=== PATIENT | female | born 1950 | race Caucasian/White ===

== ENCOUNTER 2019-10-17 11:38 | Emergency (ER) | payer OTHER ==
[~2019-10-17] VITALS: Ht 172.7 cm; Wt 68.0 kg
[~2019-10-17 11:38] MED LIST: CLARITIN10 M2 PO; DOXYCYCLINE 10100 MG PO; TAMIFLU PO; TESSALON PERLE100 MG PO
[2019-10-17 12:14] LABS: ABSOLUTE NEUTROPHILS 6.6 thou/uL (1.4-8.2); BASOPHILS 0.5 % (0.0-2.0); EOSINOPHILS 0.9 % (0.0-3.0); HEMATOCRIT 43.4 % (37.0-47.0); HEMOGLOBIN 14.5 gm/dL (12.0-15.0); LYMPHOCYTES 16.3 % (24.0-44.0); MCH 30.6 pg (26.0-34.0); MCHC 33.3 g/dL (28.0-37.0); MCV 91.7 fL (80.0-100.0); MONOCYTES 3.9 % (1.0-8.0); PLATELET COUNT 326 thou/uL (150-400); POLYS 78.4 % (36.0-66.0); RBC 4.74 mil/uL (4.20-5.00); RDW 13.6 % (10.5-14.5); WBC 8.4 thou/uL (4.0-11.0)
[2019-10-17 12:16] LABS: ANION GAP 11 mmol/L (7-16); BUN 9 mg/dL (7-18); CALCIUM 10.2 mg/dL (8.5-10.1); CHLORIDE 103 mmol/L (98-107); CO2 27 mmol/L (21-32); CREATININE 0.9 mg/dL (0.6-1.0); GLUCOSE 105 mg/dL (74-106); POTASSIUM 3.8 mmol/L (3.5-5.1); SODIUM 141 mmol/L (136-145)
[2019-10-17 12:26] LABS: ALBUMIN 4.2 g/dL (3.4-5.0); SGOT 20 U/L (15-37); SGPT 24 U/L (30-65); TOTAL BILIRUBIN 0.5 mg/dL (<0.1-1.0); TOTAL PROTEIN 8.1 g/dL (6.4-8.2); TROPONIN-I <0.06 ng/mL (<0.06)
[2019-10-17 13:55] LABS: URINE BILIRUBIN NEGATIVE (Negative); URINE BLOOD NEGATIVE (Negative); URINE CLARITY CLEAR; URINE COLOR YELLOW; URINE GLUCOSE-RANDOM* NEGATIVE (Negative); URINE KETONES TRACE (Negative); URINE LEUKOCYTES-REFLEX NEGATIVE (Negative); URINE NITRITE-REFLEX NEGATIVE (Negative); URINE PROTEIN (DIPSTICK) NEGATIVE (Negative); URINE SPECIFIC GRAVITY <= 1.005 (1.005-1.035); URINE UROBILINOGEN 0.2 E.U./dl (0.2-1.0)
[2019-10-17] MEDS ORDERED: NAPROXEN SODIU220 M2 PO (17:04)
[2019-10-17 17:40] VITALS: BP 116/60
--- NOTE | 2019-10-18 08:24 | EKG ---
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: [facility] : 1950 Requested By: Graciela Mcdonald Order Number: [id number] MD: Isacc Costa Measurements Intervals [place] Rate: 81 P: 84 SD: 156 QRS: -57 QRSD: 97 T: 61 QT: 386 QTc: 448 Interpretive Statements Sinus rhythm Left anterior fascicular block RSR' in V1 or V2, probably normal variant Compared to ECG 05/26/2012 07:17:25 Electronically Signed On 10-18-2019 8:24:16 HOT STRIP MILL INSPECTOR by Isacc Costa [email or web address] <ELECTRONICALLY SIGNED> By: Isacc Costa MD 10/18/19 0824 1142 1142 Isacc Costa MD /EPI
== END 2019-10-17 17:42 | disposition home or self-care (01) ==
LOC: ER 11:38
PROVIDERS: Emergency Medicine Emergency Medical Services
DX: M25.512 Pain in left shoulder (principal); R07.9 Chest pain, unspecified; Z88.0 Allergy status to penicillin; Z88.2 Allergy status to sulfonamides; Z88.6 Allergy status to analgesic agent; Z88.8 Allergy status to other drugs, medicaments and biological substances

== ENCOUNTER 2019-10-19 00:13 | Emergency (ER) | payer OTHER ==
[~2019-10-19] VITALS: Ht 172.7 cm; Wt 68.0 kg
[~2019-10-19 00:13] MED LIST changes: +NAPROXEN SODIU220 M2 PO
[2019-10-19 00:48] LABS: BASOPHILS 0.5 % (0.0-2.0); EOSINOPHILS 3.2 % (0.0-3.0); HEMATOCRIT 40.7 % (37.0-47.0); HEMOGLOBIN 13.6 gm/dL (12.0-15.0); LYMPHOCYTES 37.6 % (24.0-44.0); MCH 30.4 pg (26.0-34.0); MCHC 33.3 g/dL (28.0-37.0); MCV 91.3 fL (80.0-100.0); MONOCYTES 5.7 % (1.0-8.0); PLATELET COUNT 304 thou/uL (150-400); RBC 4.46 mil/uL (4.20-5.00); RDW 13.7 % (10.5-14.5); WBC 7.6 thou/uL (4.0-11.0)
[2019-10-19 01:06] LABS: ANION GAP 13 mmol/L (7-16); BUN 9 mg/dL (7-18); CHLORIDE 103 mmol/L (98-107); CO2 25 mmol/L (21-32); CREATININE 0.9 mg/dL (0.6-1.0); GLUCOSE 101 mg/dL (74-106); LIPASE 294 U/L (73-393); POTASSIUM 3.5 mmol/L (3.5-5.1); SODIUM 141 mmol/L (136-145); TROPONIN-I <0.06 ng/mL (<0.06)
[2019-10-19 01:36] LABS: CALCIUM 9.9 mg/dL (8.5-10.1)
[2019-10-19 04:02] VITALS: BP 109/54
--- NOTE | 2019-10-19 08:00 | EKG ---
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 KAY : 1950 Requested By: Lincoln Ulrich Order Number: [id number] MD: Jann Turner Measurements Intervals [place] Rate: 71 P: 16 SD: 150 QRS: -42 QRSD: 98 T: 42 QT: 400 QTc: 435 Interpretive Statements Sinus rhythm Left axis deviation RSR' in V1 or V2, right VCD Compared to ECG 10/17/2019 11:42:21 No significant change was found Electronically Signed On 10-19-2019 8:00:25 HOUSE MANAGER by Jann Turner [email or web address] <ELECTRONICALLY SIGNED> By: Jann Turner MD, [facility] 10/19/19 0800 Jann Turner MD, FAC /EPI
== END 2019-10-19 04:03 | disposition home or self-care (01) ==
LOC: ER 00:13
PROVIDERS: Emergency Medicine
DX: R07.89 Other chest pain (principal); Z88.5 Allergy status to narcotic agent; Z88.0 Allergy status to penicillin; Z79.899 Other long term (current) drug therapy; Z88.2 Allergy status to sulfonamides

== ENCOUNTER 2021-06-14 06:59 | Emergency (ER) | payer OTHER ==
[~2021-06-14] VITALS: Ht 172.7 cm; Wt 70.3 kg
[2021-06-14 07:15] LABS: URINE BILIRUBIN NEGATIVE (Negative); URINE BLOOD 1+ (Negative); URINE CLARITY CLEAR; URINE COLOR YELLOW; URINE GLUCOSE-RANDOM* NEGATIVE (Negative); URINE KETONES 1+ (Negative); URINE LEUKOCYTES-REFLEX TRACE (Negative); URINE NITRITE-REFLEX NEGATIVE (Negative); URINE PROTEIN (DIPSTICK) NEGATIVE (Negative); URINE SPECIFIC GRAVITY 1.015 (1.005-1.035); URINE UROBILINOGEN 0.2 E.U./dl (0.2-1.0)
[2021-06-14 07:25] LABS: SQUAMOUS 0-3 Few /LPF (0-3)
[2021-06-14 07:26] LABS: BACTERIA-REFLEX 1-9 Few /HPF (None Seen); CASTS None Seen /LPF (None Seen); CRYSTALS None Seen /LPF (None Seen); URINE RBC None Seen /HPF (NONE SEEN); URINE WBC-REFLEX 0-5 Rare /HPF (0-5)
[2021-06-14 07:44] LABS: ABSOLUTE NEUTROPHILS 3.2 thou/uL (1.4-8.2); BASOPHILS 0.5 % (0.0-2.0); EOSINOPHILS 3.3 % (0.0-3.0); HEMATOCRIT 39.6 % (37.0-47.0); HEMOGLOBIN 13.3 gm/dL (12.0-15.0); LYMPHOCYTES 28.8 % (24.0-44.0); MCH 30.6 pg (26.0-34.0); MCHC 33.7 g/dL (28.0-37.0); MCV 90.7 fL (80.0-100.0); PLATELET COUNT 258 thou/uL (150-400); POLYS 59.4 % (36.0-66.0); RBC 4.37 mil/uL (4.20-5.00); RDW 13.7 % (10.5-14.5); WBC 5.5 thou/uL (4.0-11.0)
[2021-06-14 07:50] LABS: CALCIUM 9.2 mg/dL (8.5-10.1); CREATININE 0.9 mg/dL (0.6-1.0); POTASSIUM 3.7 mmol/L (3.5-5.1)
[2021-06-14 07:56] LABS: ALBUMIN 3.8 g/dL (3.4-5.0); TOTAL BILIRUBIN 0.5 mg/dL (0.2-1.0)
[2021-06-14 07:57] LABS: LIPASE 209 U/L (73-393); TROPONIN-I <0.06 ng/mL (<0.06)
[2021-06-14] MEDS ORDERED: CEPHALEXIN500 MG PO (09:56)
[2021-06-14 10:21] VITALS: BP 134/66
== END 2021-06-14 10:21 | disposition home or self-care (01) ==
LOC: ER 06:59
PROVIDERS: Emergency Medicine
DX: N39.0 Urinary tract infection, site not specified (principal); Z20.822 Contact with and (suspected) exposure to COVID-19; R10.31 Right lower quadrant pain; K59.00 Constipation, unspecified; Z88.0 Allergy status to penicillin; Z88.2 Allergy status to sulfonamides; Z88.6 Allergy status to analgesic agent; Z91.041 Radiographic dye allergy status

== ENCOUNTER 2021-06-25 06:28 | Emergency (ER) | payer OTHER ==
[~2021-06-25] VITALS: Ht 172.7 cm; Wt 68.0 kg
--- NOTE | ~2021-06-25 | EMS ---
[facility] [address] [place] [address] EMS Patient Care Report Name: LYNDON VALDIVIA Room #: DEP LISA Phillips#: [id number] Admission: 06/25/21 Attend Phys: Discharge: 06/25/21 Date of : 48 Report #: [id number] THIS REPORT FOR: //name// Report Transmitted: 06/30/2021 11:07 EMS Care Summary [place], [place]/[facility] Incident [id number] @ 06/25/2021 05:55 Incident Location [address] [place] [address] Patient TYRONE VALDIVIA Female, 71 Years 1950 Patient Address [address] [place] [address] Patient History Shingles, Chief Complaint Syncope Disposition Transported No Lights/[employer] Dispatch Reason Unconscious/Fainting Transported To [facility] Narrative M42 arrived on scene to find the patient lying supine on the ground. Patient said she had walked into the kitchen and had passed out. Patient's daughter had come in to find the patient leaning against the right side of the cabinet. Patient's daughter said the patient had been passed out from anywhere from 10-30 seconds. Patient denied any head neck or back pain. Patient said she just feels very weak. Patient said she had shingles for the past 2 weeks on the right side of her body. Patient denied chest pain, fever, cough, covid-19, or shortness of breath. Patient was moved to the cot using a krista gizzard skin remover. seat [facility] [address] [place] [address] EMS Patient Care Report Name: LYNDON VALDIVIA Room #: DEP Alan#: [id number] Admission: 06/25/21 Attend Phys: Discharge: 06/25/21 Date of : 48 Report #: [id number] belts were used with the patient. En route to the hospital no changes in the patient condition occurred. M42 arrived on scene of the hospital and patient care was transferred to the RN. Initial Vitals @06:03P: 87,R: 16,BP: 107/56,Pain: 0/10,GCS: 15,Glucose: 131,SpO2: 98,Revised Trauma: 12, @06:36P: 78,R: 16,BP: 109/62,Pain: 0/10,GCS: 15,SpO2: 97,Revised Trauma: 12, Assessments @06:00MENTAL:No Abnormalities,SKIN:No Abnormalities,HEENT:Head/Face: No Abnormalities,Eyes: No Abnormalities,Neck/Airway: No Abnormalities,LUNG SOUNDS:General: No Abnormalities,Left Upper: No Abnormalities,Right Upper: No Abnormalities,Left Lower: No Abnormalities,Right Lower: No Abnormalities,ABDOMEN:General: No Abnormalities,Left Upper: No Abnormalities,Right Upper: No Abnormalities,Left Lower: No Abnormalities,Right Lower: No Abnormalities,PELVIS//GI:No Abnormalities,EXTREMITIES:Left Arm: No Abnormalities,Right Arm: No Abnormalities,Left Leg: No Abnormalities,Right Leg: No Abnormalities,PULSE:NEURO:No Abnormalities,@06:14MENTAL:No Abnormalities,SKIN:No Abnormalities,HEENT:Head/Face: No Abnormalities,Eyes: No Abnormalities,Neck/Airway: No Abnormalities,LUNG SOUNDS:General: No Abnormalities,Left Upper: No Abnormalities,Right Upper: No Abnormalities,Left Lower: No Abnormalities,Right Lower: No Abnormalities,ABDOMEN:General: No Abnormalities,Left Upper: No Abnormalities,Right Upper: No Abnormalities,Left Lower: No Abnormalities,Right Lower: No Abnormalities,PELVIS//GI:No Abnormalities,EXTREMITIES:Left Arm: No Abnormalities,Right Arm: No Abnormalities,Left Leg: No Abnormalities,Right Leg: No Abnormalities,PULSE:NEURO:No Abnormalities, Impression Syncope / Fainting Procedures @06:00ALS AssessmentResponse: UnchangedSucceeded@06:08Saline Lock 10cc (20 ga) Site: Antecubital-LeftResponse: UnchangedSucceeded Timeline 05:53,Call Received 05:53,Dispatch Notified 05:55,Dispatched 05:56,En Route 05:59,On Scene 06:00,At Patient 06:00,ALS Assessment,Response: UnchangedSucceeded, 06:03,BP: 107/56 M,PULSE: 87,RR: 16 R,SPO2: 98 Ox,ETCO2: ,B,PAIN: 0,GCS: 15, [facility] [address] [place] [address] EMS Patient Care Report Name: LYNDON VALDIVIA Room #: DEP LISA Phillips#: [id number] Admission: 06/25/21 Attend Phys: Discharge: 06/25/21 Date of : 48 Report #: [id number] 06:08,Saline Lock 10cc 20 ga Site: Antecubital-Left,Response: UnchangedSucceeded, 06:12,Depart Scene 06:35,At Destination 06:36,BP: 109/62 M,PULSE: 78,RR: 16 R,SPO2: 97 Ox,ETCO2: ,BG: ,PAIN: 0,GCS: 15, 06:47,Call Closed Disclaimer v1.1 Copyright 2020 [email or web address] This EMS Care Summary contains data elements from the applicable legal record (which may be displayed differently). It is designed to provide pertinent information for the following purposes: continuity of care, clinical quality, and state data reporting. The complete legal record is available to ED staff and administrators of the receiving hospital in [employer]'s Patient Tracker. All data is provided "as is."
[~2021-06-25 06:28] MED LIST changes: +CEPHALEXIN500 MG PO
--- NOTE | 2021-06-25 07:19 | EKG ---
[place] [address] [facility] [place] [address] ELECTROCARDIOGRAM REPORT Name: LYNDON VALDIVIA Room #: REG [facility]#: [id number] Admission: 06/25/21 Attend Phys: Discharge: Date of : 48 Report #: [id number] 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: TRISTEN : 1950 Requested By: Servando Sosa Order Number: [id number] MD: Wally Washington Measurements Intervals [place] Rate: 71 P: 71 IA: 159 QRS: -59 QRSD: 97 T: 54 QT: 432 QTc: 470 Interpretive Statements Sinus rhythm Left anterior fascicular block RSR' in V1 or V2, right VCD or RVH Compared to ECG 10/19/2019 00:47:06 Left anterior fascicular block now present Right ventricular hypertrophy now present Left-axis deviation no longer present Electronically Signed On 06-25-2021 7:18:53 CDT by Wally Washington [email or web address] <ELECTRONICALLY SIGNED> By: Wally Washington MD, FACC 06/25/21 0718 0637 0637 Wally Washington MD, [facility] /EPI
[2021-06-25 07:28] LABS: ABSOLUTE NEUTROPHILS 5.6 thou/uL (1.4-8.2); BASOPHILS 0.6 % (0.0-2.0); EOSINOPHILS 0.5 % (0.0-3.0); HEMATOCRIT 39.9 % (37.0-47.0); HEMOGLOBIN 13.7 gm/dL (12.0-15.0); LYMPHOCYTES 31.3 % (24.0-44.0); MCH 30.6 pg (26.0-34.0); MCHC 34.2 g/dL (28.0-37.0); MCV 89.5 fL (80.0-100.0); MONOCYTES 5.6 % (1.0-8.0); PLATELET COUNT 321 thou/uL (150-400); RBC 4.46 mil/uL (4.20-5.00); RDW 13.4 % (10.5-14.5)
[2021-06-25 07:38] LABS: ANION GAP 14 mmol/L (7-16); BUN 5 mg/dL (7-18); CALCIUM 9.1 mg/dL (8.5-10.1); CHLORIDE 93 mmol/L (98-107); CO2 22 mmol/L (21-32); CREATININE 0.7 mg/dL (0.6-1.0); GLUCOSE 157 mg/dL (74-106); POTASSIUM 3.5 mmol/L (3.5-5.1); SODIUM 129 mmol/L (136-145)
[2021-06-25 07:49] LABS: ALBUMIN 3.8 g/dL (3.4-5.0); LIPASE 188 U/L (73-393); SGOT 16 U/L (15-37); SGPT 16 U/L (30-65); TOTAL BILIRUBIN 0.7 mg/dL (0.2-1.0); TOTAL PROTEIN 6.9 g/dL (6.4-8.2); TROPONIN-I <0.06 ng/mL (<0.06)
[2021-06-25 09:24] LABS: URINE BILIRUBIN NEGATIVE (Negative); URINE BLOOD TRACE (Negative); URINE CLARITY CLEAR; URINE COLOR YELLOW; URINE GLUCOSE-RANDOM* NEGATIVE (Negative); URINE KETONES 2+ (Negative); URINE LEUKOCYTES-REFLEX NEGATIVE (Negative); URINE NITRITE-REFLEX NEGATIVE (Negative); URINE PROTEIN (DIPSTICK) NEGATIVE (Negative); URINE UROBILINOGEN 0.2 E.U./dl (0.2-1.0)
[2021-06-25 11:58] VITALS: BP 126/76
== END 2021-06-25 11:59 | disposition home or self-care (01) ==
LOC: ER 06:28
PROVIDERS: Student in an Organized Health Care Education/Training Program
DX: R55 Syncope and collapse (principal); E87.1 Hypo-osmolality and hyponatremia; E86.0 Dehydration; Z79.899 Other long term (current) drug therapy; Z88.6 Allergy status to analgesic agent; Z88.5 Allergy status to narcotic agent; Z88.0 Allergy status to penicillin; Z88.2 Allergy status to sulfonamides

== ENCOUNTER 2021-06-29 10:21 | Emergency (ER) | payer OTHER ==
[~2021-06-29] VITALS: Ht 175.3 cm; Wt 68.0 kg
--- NOTE | ~2021-06-29 | EMS ---
[address] [address] EMS Patient Care Report Name: LYNDON VALDIVIA Room #: REG Alan#: [id number] Admission: 06/29/21 Attend Phys: Discharge: Date of : 48 Report #: [id number] THIS REPORT FOR: //name// Report Transmitted: 06/29/2021 11:59 EMS Care Summary [place], [place]/[facility] Incident [id number] @ 06/29/2021 09:40 Incident Location [address] [place], [place] [id number] Patient LYNDON VALDIVIA Female, 71 Years 1950 Patient Address [address] [place], [place] [id number] Patient History Shingles, Patient Allergies Penicillin allergy,Morphine,Sulfa, Patient Medications Ibuprofen, Chief Complaint weakness Disposition Transported No Lights/[place] Dispatch Reason Unconscious/Fainting Transported To [facility] Narrative arrived on scene PT supine and A&O X 3 on living room floor. PT stated she laid down and did not fall. Compliant of weakness and stomach pain for past 4 days which she was transported and seen for as well. Vitals were taken in supine position and PT was lifted from the floor assisted to cot where she was secured [address] [address] EMS Patient Care Report Name: LYNDON VALDIVIA Room #: REG LISA Phillips#: [id number] Admission: 06/29/21 Attend Phys: Discharge: Date of : 48 Report #: [id number] and moved to the ambulance where secondary assessment/vitals were taken. Crew transported PT non emergency to [facility] and transferred care to facility. Initial Vitals @09:46P: 109,R: 20,BP: 110/56,CO: 2,SpO2: 99, @09:54P: 95,R: 20,BP: 112/73,Pain: 0/10,GCS: 15,Glucose: 102,SpO2: 99,Revised Trauma: 12, Assessments @09:44MENTAL:No Abnormalities,SKIN:No Abnormalities,HEENT:Head/Face: No Abnormalities,Eyes: No Abnormalities,Neck/Airway: No Abnormalities,LUNG SOUNDS:General: No Abnormalities,Left Upper: No Abnormalities,Right Upper: No Abnormalities,Left Lower: No Abnormalities,Right Lower: No Abnormalities,ABDOMEN:General: No Abnormalities,Left Upper: No Abnormalities,Right Upper: No Abnormalities,Left Lower: No Abnormalities,Right Lower: No Abnormalities,PELVIS//GI:No Abnormalities,EXTREMITIES:Left Arm: No Abnormalities,Right Arm: No Abnormalities,Left Leg: No Abnormalities,Right Leg: No Abnormalities,PULSE:NEURO:No Abnormalities, Impression Generalized Weakness Procedures @09:44BLS AssessmentResponse: Unchanged Timeline 09:38,Call Received 09:38,Dispatch Notified 09:40,Dispatched 09:42,En Route 09:43,On Scene 09:44,At Patient 09:44,BLS Assessment,Response: Unchanged 09:46,BP: 110/56 M,PULSE: 109,RR: 20 R,SPO2: 99 Ox,ETCO2: ,BG: ,PAIN: ,GCS: , 09:54,BP: 112/73 M,PULSE: 95,RR: 20 R,SPO2: 99 Ox,ETCO2: ,B,PAIN: 0,GCS: 15, 10:03,Depart Scene 10:15,At Destination 10:57,Call Closed Disclaimer v1.1 Copyright 2020 [employer] This EMS Care Summary contains data elements from the applicable legal record (which may be displayed differently). It is designed to provide pertinent information for the following purposes: continuity of care, clinical quality, [facility] [address] [place] [address] EMS Patient Care Report Name: SHEALYNDON J Room #: REG [facility]#: [id number] Admission: 06/29/21 Attend Phys: Discharge: Date of : 48 Report #: [id number] and state data reporting. The complete legal record is available to ED staff and administrators of the receiving hospital in [employer] Patient Tracker. All data is provided "as is."
[2021-06-29 10:48] LABS: ABSOLUTE NEUTROPHILS 6.4 thou/uL (1.4-8.2); BASOPHILS 0.7 % (0.0-2.0); EOSINOPHILS 1.1 % (0.0-3.0); HEMOGLOBIN 14.1 gm/dL (12.0-15.0); LYMPHOCYTES 25.1 % (24.0-44.0); MCHC 34.3 g/dL (28.0-37.0); MCV 90.4 fL (80.0-100.0); MONOCYTES 7.3 % (1.0-8.0); PLATELET COUNT 354 thou/uL (150-400); POLYS 65.8 % (36.0-66.0); RBC 4.54 mil/uL (4.20-5.00); RDW 13.9 % (10.5-14.5); WBC 9.7 thou/uL (4.0-11.0)
[2021-06-29 10:56] LABS: CALCIUM 9.6 mg/dL (8.5-10.1); CREATININE 0.9 mg/dL (0.6-1.0); POTASSIUM 3.9 mmol/L (3.5-5.1)
[2021-06-29 11:07] LABS: ALBUMIN 3.9 g/dL (3.4-5.0); TOTAL BILIRUBIN 0.6 mg/dL (0.2-1.0); TOTAL PROTEIN 7.4 g/dL (6.4-8.2)
[2021-06-29 13:28] LABS: URINE BILIRUBIN NEGATIVE (Negative); URINE BLOOD TRACE (Negative); URINE CLARITY CLEAR; URINE COLOR YELLOW; URINE GLUCOSE-RANDOM* NEGATIVE (Negative); URINE KETONES 1+ (Negative); URINE LEUKOCYTES-REFLEX TRACE (Negative); URINE NITRITE-REFLEX NEGATIVE (Negative); URINE PROTEIN (DIPSTICK) NEGATIVE (Negative); URINE UROBILINOGEN 0.2 E.U./dl (0.2-1.0)
[2021-06-29 13:45] VITALS: BP 122/96
[2021-06-29] MEDS ORDERED: COLACE100 MG PO (13:47)
--- NOTE | 2021-06-29 15:15 | EKG ---
[place] [address] [place] [address] ELECTROCARDIOGRAM REPORT Name: LYNDON VALDIVIA Room #: [facility] [place]#: [id number] Admission: 06/29/21 Attend Phys: Discharge: 06/29/21 Date of : 48 Report #: [id number] [facility] ED Test Date: 2021-06-29 Test Time: 10:29:23 Pat Name: LYNDON VALDIVIA Department: Room: Gender: F Director Federal: saida : 1950 Requested By: Nicola Comer Order Number: [id number] MD: Wally Washington Measurements Intervals [place] Rate: 89 P: 49 GA: 153 QRS: -55 QRSD: 86 T: 51 QT: 374 QTc: 456 Interpretive Statements Sinus rhythm Left anterior fascicular block RSR' in V1 or V2, probably normal variant Compared to ECG 06/25/2021 06:37:49 Right ventricular hypertrophy no longer present Electronically Signed On 06-29-2021 15:15:40 CDT by Wally Washington [email or web address] <ELECTRONICALLY SIGNED> By: Wally Washington MD, [facility] 06/29/21 1515 1029 1029 Wally Washington MD, FAC /EPI
== END 2021-06-29 13:45 | disposition home or self-care (01) ==
LOC: ER 10:21
PROVIDERS: Emergency Medicine
DX: K59.00 Constipation, unspecified (principal); Z20.822 Contact with and (suspected) exposure to COVID-19; R53.1 Weakness; G89.29 Other chronic pain; Z88.0 Allergy status to penicillin; Z88.1 Allergy status to other antibiotic agents; Z88.6 Allergy status to analgesic agent; Z88.8 Allergy status to other drugs, medicaments and biological substances

== ENCOUNTER 2021-07-03 17:06 | Emergency (ER) | payer OTHER ==
[~2021-07-03] VITALS: Ht 172.7 cm; Wt 68.0 kg
[~2021-07-03 17:06] MED LIST changes: +COLACE100 MG PO
[2021-07-03 17:35] LABS: ABSOLUTE NEUTROPHILS 5.6 thou/uL (1.4-8.2); BASOPHILS 0.5 % (0.0-2.0); HEMATOCRIT 41.8 % (37.0-47.0); HEMOGLOBIN 13.7 gm/dL (12.0-15.0); LYMPHOCYTES 24.7 % (24.0-44.0); MCH 29.8 pg (26.0-34.0); MCHC 32.8 g/dL (28.0-37.0); MCV 90.8 fL (80.0-100.0); MONOCYTES 6.6 % (1.0-8.0); PLATELET COUNT 383 thou/uL (150-400); POLYS 67.2 % (36.0-66.0); RBC 4.61 mil/uL (4.20-5.00); RDW 13.8 % (10.5-14.5); WBC 8.3 thou/uL (4.0-11.0)
[2021-07-03 17:54] LABS: CALCIUM 9.2 mg/dL (8.5-10.1); CREATININE 0.8 mg/dL (0.6-1.0); POTASSIUM 3.5 mmol/L (3.5-5.1)
[2021-07-03 18:04] LABS: ALBUMIN 3.8 g/dL (3.4-5.0); TOTAL BILIRUBIN 0.5 mg/dL (0.2-1.0); TOTAL PROTEIN 7.5 g/dL (6.4-8.2)
[2021-07-03 18:08] LABS: URINE BILIRUBIN NEGATIVE (Negative); URINE BLOOD TRACE (Negative); URINE CLARITY CLEAR; URINE COLOR YELLOW; URINE GLUCOSE-RANDOM* NEGATIVE (Negative); URINE KETONES TRACE (Negative); URINE LEUKOCYTES-REFLEX TRACE (Negative); URINE NITRITE-REFLEX NEGATIVE (Negative); URINE PROTEIN (DIPSTICK) NEGATIVE (Negative); URINE SPECIFIC GRAVITY <= 1.005 (1.005-1.035); URINE UROBILINOGEN 0.2 E.U./dl (0.2-1.0)
[2021-07-03 18:40] VITALS: BP 137/63
--- NOTE | 2021-07-04 09:45 | EKG ---
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: : 1950 Requested By: Lisa Zayas Order Number: [id number] MD: Jann Turner Measurements Intervals [place] Rate: 97 P: 37 SD: 141 QRS: -63 QRSD: 79 T: 75 QT: 338 QTc: 430 Interpretive Statements Sinus rhythm Left anterior fascicular block RSR' in V1 or V2, probably normal variant Compared to ECG 06/29/2021 10:29:23 No significant changes Electronically Signed On 07-04-2021 9:44:55 CDT by Jann Turner [email or web address] <ELECTRONICALLY SIGNED> By: Jann Turner MD, [facility] 07/04/21 0944 11 11 Jann Turner MD, [facility] /EPI
== END 2021-07-03 18:55 | disposition home or self-care (01) ==
LOC: ER 17:06
PROVIDERS: Emergency Medicine
DX: K59.00 Constipation, unspecified (principal); Z88.2 Allergy status to sulfonamides; Z88.0 Allergy status to penicillin; Z88.5 Allergy status to narcotic agent; Z91.02 Food additives allergy status